=== PATIENT | female | born 1960 | race Caucasian/White ===

== ENCOUNTER 2016-11-07 17:19 | Emergency (ER) | payer OTHER ==
[2016-04-25 14:24] VITALS: Ht 154.9 cm; Wt 90.7 kg
[~2016-11-07] VITALS: Ht 154.9 cm; Wt 90.7 kg
[~2016-11-07 17:19] MED LIST: AMLO5TAB4 PO; CARV6.2554 PO; FURO-149 PO; GLIM1TAB PO; LEVO100T9 PO; LEVO250T58 PO; [UNRECOGNIZED DRUG - OTHER] XX
[2016-11-07 17:25] VITALS: BP 169/75; PULSE 65; RESP 18; TEMP 98; O2SAT 100
--- NOTE | 2016-11-07 17:30 | NUR ---
Patient triaged and placed in waiting room. VSS and patient appears in no acute distress at this time. Accompanied by FRIEND, awaiting available bed, and MD notified of need for MSE.
--- NOTE | 2016-11-07 17:45 | NUR ---
ER at bedside examining patient.
--- NOTE | 2016-11-07 18:00 | NUR ---
Pt sent by PMD for furtehr evaluation of abnormal K+. Pt has no complaints no acute distress noted.
[2016-11-07 18:01] LABS: BASOPHILS # (AUTO) 0.1 K/uL (0.0-0.2); BASOPHILS % (AUTO) 0.6 % (0.0-2.0); EOSINOPHILS # (AUTO) 0.6 K/uL (0.0-0.4); EOSINOPHILS % (AUTO) 6.8 % (0.0-4.0); HEMATOCRIT 28.3 % (36-48); HEMOGLOBIN 9.4 g/dL (12.0-16.0); LYMPHOCYTES # (AUTO) 2.3 K/uL (1.0-5.5); MEAN CORPUSCULAR HEMOGLOBIN 30 pg (27-31); MEAN CORPUSCULAR HGB CONC 33 % (32-36); MEAN CORPUSCULAR VOLUME 90 fL (79.0-98.0); MONOCYTES # (AUTO) 0.5 K/uL (0.0-1.0); MONOCYTES % (AUTO) 5.4 % (1.7-9.3); NEUTROPHILS # (AUTO) 5.5 K/uL (1.8-7.7); NEUTROPHILS % (AUTO) 61.2 % (40.0-70.0); PLATELET COUNT (AUTO) 290 K/uL (130-430); RED BLOOD CELL COUNT(AUTO) 3.14 MIL/uL (4.2-6.2); RED CELL DISTRIBUTION WIDTH 13.1 % (9.0-15.0)
[2016-11-07 18:10] LABS: CALCIUM 8.9 mg/dL (8.4-11.0); POTASSIUM 4.4 mmol/L (3.5-5.1)
[2016-11-07 18:16] LABS: CREATININE 7.56 mg/dL (0.55-1.30)
[2016-11-07 18:25] LABS: TOTAL BILIRUBIN 0.5 mg/dL (0.0-1.0)
[2016-11-07 18:26] LABS: ALBUMIN 3.8 g/dL (3.4-4.8); TOTAL PROTEIN, SERUM 8.4 g/dL (6.4-8.3)
[2016-11-07 19:28] VITALS: BP 169/75; PULSE 65; RESP 18; TEMP 98; O2SAT 100
--- NOTE | 2016-11-07 19:28 | NUR ---
Patient given written and verbal discharge instructions and verbalizes understanding. ER MD discussed with patient the results and treatment provided. Given copies of tests performed in ER. Patient in stable condition. ID arm band removed. Patient educated on pain management and to follow up with PMD. Pain Scale 0. Opportunity for questions provided and answered.
== END 2016-11-07 19:28 | disposition home or self-care (01) ==
LOC: SED 17:19
DX: E87.5 Hyperkalemia (principal); E11.9 Type 2 diabetes mellitus without complications; I12.0 Hypertensive chronic kidney disease with stage 5 chronic kidney disease or end stage renal disease; N18.6 End stage renal disease; Z99.2 Dependence on renal dialysis; Z88.0 Allergy status to penicillin; Z88.5 Allergy status to narcotic agent
CPT/HCPCS: 36415; 80053; 85025; 99284